=== PATIENT | female | born 1975 | race Caucasian/White ===

== ENCOUNTER 2019-12-01 11:48 | Emergency (ER) | payer SELFPAY ==
--- NOTE | 2019-12-01 12:22 | ER Document Report ---
ED Medical Screen (RME) - General Chief Complaint: Altered Mental Status Stated Complaint: ABDOMINAL PAIN Time Seen by Provider: 12/01/19 11:59 - HPI Notes: 12/01/19 12:18 43-year-old female with a history of cirrhosis and alcoholism presents to the emergency room by private vehicle with her partner for complaints of abdominal pain and pressure that has become progressively worse as well as altered mental status that has become progressively worse over the last 5 days. Patient's had recent nausea vomiting diarrhea for the last 2 weeks as well as bilateral swelling. Partner states that she has been complaining of some shortness of breath, no chest pain. Reports increased weakness. Patient has been an active alcoholic for couple of decades, she drinks daily. Patient's last paracentesis was done in January 2019 in [place]. Last bowel movement was this morning. Patient has had bowel incontinence is for the last year. Denies any melena. Patient does not have an active doctor in the area, they have been traveling across country over the summer, they do not have an established doctor. Denies any fevers chills. I have greeted and performed a rapid initial assessment of this patient. A comprehensive ED assessment and evaluation of the patient, analysis of test results and completion of the medical decision making process will be conducted by additional ED providers. PHYSICAL EXAMINATION: GENERAL: Acutely ill and in no acute distress. HEAD: Atraumatic, normocephalic. EYES: Pupils equal round extraocular movements intact, conjunctiva are normal. Bilateral jaundice. CV: Sinus tachycardia LUNGS: no respiratory distress abd: Abdominal distention, abdominal tenderness to right upper quadrant, left upper quadrant epigastric area. Musculoskeletal: Normal range of motion NEUROLOGICAL: Normal speech, normal gait. Right-handed tremor SKIN: Warm, Dry, normal turgor, no rashes or lesions noted. - Related Data Allergies/Adverse Reactions: No Known Allergies Allergy (Unverified 12/01/19 11:58) Home Medications: lasix, gabapentin, metoprolol Past Medical History - Social History Chew tobacco use (# tins/day): No Frequency of alcohol use: daily Drug Abuse: None Physical Exam - Vital signs Vitals: Temp Pulse Resp BP Pulse Ox 98.9 F 131 H 16 142/75 H 95 12/01/19 11:55 12/01/19 11:55 12/01/19 11:55 12/01/19 11:55 12/01/19 11:55 Course - Vital Signs Vital signs: Temp Pulse Resp BP Pulse Ox 98.9 F 131 H 16 142/75 H 95 12/01/19 11:55 12/01/19 11:55 12/01/19 11:55 12/01/19 11:55 12/01/19 11:55
[2019-12-01 13:00] LABS: HEMATOCRIT 36.7 % (36.0-47.0); HEMOGLOBIN 13.1 g/dL (12.0-15.5); MEAN CORPUSCULAR HEMOGLOBIN 40.6 pg (27.0-33.4); MEAN CORPUSCULAR HGB CONC 35.7 g/dL (32.0-36.0); RED BLOOD COUNT 3.22 10^6/uL (3.72-5.28); WHITE BLOOD COUNT 21.6 10^3/uL (4.0-10.5)
[2019-12-01 13:13] LABS: MEAN CORPUSCULAR VOLUME 114 fl (80-97)
[2019-12-01 13:17] LABS: ABSOLUTE LYMPHOCYTES# (MANUAL) 1.1 10^3/uL (0.5-4.7); ABSOLUTE MONOCYTES # (MANUAL) 2.4 10^3/uL (0.1-1.4); BASOPHILS % (MANUAL) 1 % (0-2); EOSINOPHILS % (MANUAL) 0 % (0-6); LYMPHOCYTES % (MANUAL) 4 % (13-45); MONOCYTES % (MANUAL) 11 % (3-13); SEGMENTED NEUTROPHILS % (MAN) 83 % (42-78); TOTAL CELLS COUNTED 100
[2019-12-01 13:18] LABS: ANISOCYTOSIS SLIGHT; POLYCHROMASIA 1+; TOXIC VACUOLATION PRESENT
[2019-12-01 13:19] LABS: PLATELET CLUMPS PRESENT; PLATELET COMMENT DECREASED; PLATELET COUNT 129 10^3/uL (150-450)
[2019-12-01 13:22] LABS: ALBUMIN 2.6 g/dL (3.5-5.0); ALKALINE PHOSPHATASE 236 U/L (38-126); ANION GAP 14 (5-19); ASPARTATE AMINO TRANSFERASE 167 U/L (14-36); BILIRUBIN,DIRECT 11.8 mg/dL (0.0-0.4); BILIRUBIN,TOTAL 16.7 mg/dL (0.2-1.3); BLOOD UREA NITROGEN 25 mg/dL (7-20); CALCIUM 7.8 mg/dL (8.4-10.2); CARBON DIOXIDE 26 mmol/L (22-30); GLUCOSE 107 mg/dL (75-110); TOTAL PROTEIN 7.8 g/dL (6.3-8.2)
[2019-12-01 13:31] LABS: PROTHROMBIN TIME 29.4 SEC (11.4-15.4)
[2019-12-01 13:32] LABS: PARTIAL THROMBOPLASTIN TIME 52.2 SEC (23.5-35.8)
[2019-12-01 13:33] LABS: ALCOHOL < 10 mg/dL (NONE DETECTED)
[2019-12-01 13:34] LABS: CHLORIDE 87 mmol/L (98-107)
--- NOTE | 2019-12-01 14:11 | ER Document Report ---
ED General - General Chief Complaint: Altered Mental Status Stated Complaint: ABDOMINAL PAIN Time Seen by Provider: 12/01/19 11:59 Cannot obtain history due to: Altered mental status - HPI Onset/Duration: Gradual Notes: Patient is a 43-year-old female with a past medical history of alcoholism who presents with altered mental status. She is here with her friend who lives with her. Patient is unable to provide a history due to her altered mental status. She is oriented to person. Her friend states that she has had about a week of declining mental status. For the past several days, she has been unsteady on her feet. She did fall today and he tried to catch her. States that she has been dropping cups and has been generally weaker. She is also not at her normal baseline mentation. He denies any fevers. No cough. Patient does drink alcohol daily and drank last night. Has a history of liver failure and cirrhosis. He noticed that she has had pain of her eyes for the past week. Patient does not have a physician here or followed up with anyone according to her friend. - Related Data Allergies/Adverse Reactions: No Known Allergies Allergy (Unverified 12/01/19 11:58) Home Medications: lasix, gabapentin, metoprolol Past Medical History - General Information source: Friend Cannot obtain history due to: Altered mental status - Social History Smoking Status: Current Some Day Smoker Chew tobacco use (# tins/day): No Frequency of alcohol use: daily Drug Abuse: None Family History: Reviewed & Not Pertinent Review of Systems - Review of Systems -: Yes ROS unobtainable due to patient's medical condition Constitutional: denies: Fever Gastrointestinal: Abdomen distended Genitourinary: Burning, Hematuria Neurological/Psychological: Confusion, Weakness Physical Exam - Vital signs Vitals: Temp Pulse Resp BP Pulse Ox 98.9 F 131 H 16 142/75 H 95 12/01/19 11:55 12/01/19 11:55 12/01/19 11:55 12/01/19 11:55 12/01/19 11:55 - Notes Notes: VITAL SIGNS: Tachycardic. GENERAL: Oriented to person, not place or time. Will respond to verbal commands. HEAD: Normal with no signs of head trauma. EYES: Scleral icterus present EARS: Hearing grossly intact. NOSE: Normal. NECK: Normal range of motion, no tenderness, supple, no lymphadenopathy, No adenopathy, no JVD. No posterior cervical tenderness. CHEST: Clear breath sounds bilaterally. No wheezes, rales, or rhonchi. CARDIAC: Regular rate and rhythm. S1 and S2, without murmurs, gallops, or rubs. VASCULAR: Bilateral pitting edema +2 to lower extremities to the knees ABDOMEN: Abdominal distension. GASTROINTESTINAL: Bowel sounds normal LYMPATHTIC: No lymphadenopathy noted. NEUROLOGICAL: Alert and oriented x 1. Will respond to verbal commands. SKIN: No rashes or lesions but does appear jaundiced. Course - Re-evaluation Re-evalutation: 12/01/19 15:58 I discussed with the hospitalist who recommended that patient be transferred for a higher level of care after assessing her in the ER as she may eventually require dialysis and needs GI consultation. She has significant lab abnormalities including elevated liver function tests, renal failure, acidosis, leukocytosis, and elevated ammonia. I am unable to do a paracentesis to rule out SBP as patient has significantly elevated PT/INR. She was started on antibiotics and given sepsis fluids. Will discuss with the transfer center. I discussed with Dr. Elyss[facility] accepted the [facility]. She was in agreement with the Rocephin and lactulose treatment. I updated the patient and her family on the plan and they were very agreeable to this. On reassessment, patient is alert to person and place now. She is responding to questions faster and appears improved. Currently awaiting transfer. 12/01/19 16:53 12/01/19 17:43 12/01/19 17:46 12/01/19 17:48 - Vital Signs Vital signs: Temp Pulse Resp BP Pulse Ox 98.0 F 125 H 21 H 124/100 H 97 12/01/19 15:30 12/01/19 12:11 12/01/19 17:30 12/01/19 17:30 12/01/19 17:30 - Laboratory Result Diagrams: 12/01/19 12:45 12/01/19 12:45 Laboratory results interpreted by me: 12/01/19 12/01/19 12/01/19 12:45 12:45 12:45 WBC 21.6 H RBC 3.22 L MCV 114 H MCH 40.6 H RDW 15.0 H Plt Count 129 L Seg Neuts % (Manual) 83 H Lymphocytes % (Manual) 4 L Abs Neuts (Manual) 17.9 H Abs Monocytes (Manual) 2.4 H PT 29.4 H APTT 52.2 H Sodium 127.3 L Potassium 3.0 L* Chloride 87 L BUN 25 H Creatinine 2.08 H Est GFR ( Amer) 31 L Est GFR (MDRD) Non-Af 26 L Lactic Acid Calcium 7.8 L Total Bilirubin 16.7 H Direct Bilirubin 11.8 H AST 167 H ALT 46 H Alkaline Phosphatase 236 H Ammonia NT-Pro-B Natriuret Pep Albumin 2.6 L Urine Protein Urine Glucose (UA) Urine Blood Urine Nitrite Urine Bilirubin Urine Urobilinogen 12/01/19 12/01/19 12/01/19 12:45 14:20 14:20 WBC RBC MCV MCH RDW Plt Count Seg Neuts % (Manual) Lymphocytes % (Manual) Abs Neuts (Manual) Abs Monocytes (Manual) PT APTT Sodium Potassium Chloride BUN Creatinine Est GFR ( Amer) Est GFR (MDRD) Non-Af Lactic Acid 6.7 H Calcium Total Bilirubin Direct Bilirubin AST ALT Alkaline Phosphatase Ammonia 82.7 H NT-Pro-B Natriuret Pep 345 H Albumin Urine Protein Urine Glucose (UA) Urine Blood Urine Nitrite Urine Bilirubin Urine Urobilinogen 12/01/19 14:20 WBC RBC MCV MCH RDW Plt Count Seg Neuts % (Manual) Lymphocytes % (Manual) Abs Neuts (Manual) Abs Monocytes (Manual) PT APTT Sodium Potassium Chloride BUN Creatinine Est GFR ( Amer) Est GFR (MDRD) Non-Af Lactic Acid Calcium Total Bilirubin Direct Bilirubin AST ALT Alkaline Phosphatase Ammonia NT-Pro-B Natriuret Pep Albumin Urine Protein 30 H Urine Glucose (UA) 50 H Urine Blood MODERATE H Urine Nitrite POSITIVE H Urine Bilirubin MODERATE H Urine Urobilinogen 4.0 H - Diagnostic Test Radiology reviewed: Image reviewed, Reports reviewed - EKG Interpretation by Me EKG shows normal: Sinus rhythm Rate: Tachycardia When compared to previous EKG there are: Previous EKG unavailable Additional EKG results interpreted by me: 12/01/19 15:03 Sinus tachycardia at a rate of 122. QTc 490. Artifact present but no obvious acute ST changes. No previous EKG available for comparison. Critical Care Note - Critical Care Note Total time excluding time spent on procedures (mins): 30 Discharge - Discharge Clinical Impression: Elevated liver function tests, Jaundice, Hepatic encephalopathy Acute kidney failure Qualifiers: Acute renal failure type: unspecified Qualified Code(s): N17.9 - Acute kidney failure, unspecified Cirrhosis of liver Qualifiers: Hepatic cirrhosis type: unspecified hepatic cirrhosis Ascites presence: unspecified Qualified Code(s): K74.60 - Unspecified cirrhosis of liver Sepsis Qualifiers: Sepsis type: sepsis due to unspecified organism Sepsis acute organ dysfunction status: unspecified Qualified Code(s): A41.9 - Sepsis, unspecified organism Condition: Serious Disposition: [facility]
--- NOTE | 2019-12-01 14:14 | RADIOLOGY REPORT (SQ) ---
EXAM DESCRIPTION: CT HEAD WITHOUT IMAGES COMPLETED DATE/TIME: 12/01/2019 2:01 pm REASON FOR STUDY: abd pain/pressure,distention x5d, +cirrhosis COMPARISON: None. TECHNIQUE: Axial images acquired through the brain without intravenous contrast. Images reviewed wi th bone, brain and subdural windows. Additional sagittal and coronal reconstructions were generated. Images stored on PACS. All CT scanners at this facility use dose modulation, iterative reconstruction, and/or weight based d osing when appropriate to reduce radiation dose to as low as reasonably achievable (ALARA). [facility]: Dose Right [facility]: CareDose [facility]: Dose Right [facility]: Teradose 4D [facility]: Ph.Creative RADIATION DOSE: CT Rad equipment meets quality standard of care and radiation dose reduction techniq ues were employed. CTDIvol: 53.2 mGy. DLP: 1928 mGy-cm. mGy. LIMITATIONS: Motion artifact. FINDINGS: VENTRICLES: Normal size and contour. CEREBRUM: No masses. No hemorrhage. No midline shift. No evidence for acute infarction. Normal gra y/white matter differentiation. No areas of low density in the white matter. CEREBELLUM: No masses. No hemorrhage. No alteration of density. No evidence for acute infarction. EXTRAAXIAL SPACES: No fluid collections. No masses. ORBITS AND GLOBE: No intra- or extraconal masses. Normal contour of globe without masses. CALVARIUM: No fracture. PARANASAL SINUSES: No fluid or mucosal thickening. SOFT TISSUES: No mass or hematoma. OTHER: No other significant finding. IMPRESSION: NORMAL BRAIN CT WITHOUT CONTRAST. EVIDENCE OF ACUTE STROKE: NO. COMMENT: Quality ID # [id number]: Final reports with documentation of one or more dose reduction techniques (e.g., Automated exposure control, adjustment of the mA and/or kV according to patient size, use of iterative reconstruction technique) TECHNICAL DOCUMENTATION: JOB ID: [id number] 2010 [employer]- All Rights Reserved Reading location - IP/workstation name: [email or web address]
[2019-12-01] MEDS ORDERED: NORMAL SALINE 1000 ML 1,000 ML IV ONE ×2 (14:19→14:30)
--- NOTE | 2019-12-01 14:19 | RADIOLOGY REPORT (SQ) ---
EXAM DESCRIPTION: CT ABD/PELVIS NO ORAL OR IV IMAGES COMPLETED DATE/TIME: 12/01/2019 2:01 pm REASON FOR STUDY: abdominal pain, distension, cirrhosis COMPARISON: None. TECHNIQUE: CT scan of the abdomen and pelvis performed without intravenous or oral contrast. Images reviewed with lung, soft tissue, and bone windows. Reconstructed coronal and sagittal MPR images revi ewed. All images stored on PACS. All CT scanners at this facility use dose modulation, iterative reconstruction, and/or weight based d osing when appropriate to reduce radiation dose to as low as reasonably achievable (ALARA). [facility]: Dose Right [facility]: CareDose [facility]: Dose Right [facility]: Teradose 4D [facility]: YellowSchedule RADIATION DOSE: CT Rad equipment meets quality standard of care and radiation dose reduction techniq ues were employed. CTDIvol: 14.4 mGy. DLP: 859 mGy-cm.mGy. LIMITATIONS: Motion artifact. FINDINGS: LOWER CHEST: Breast implants. NON-CONTRASTED LIVER, SPLEEN, ADRENALS: Cirrhosis. PANCREAS: No masses. No peripancreatic inflammatory changes. GALLBLADDER: No identified stones by CT criteria. No inflammatory changes to suggest cholecystitis. RIGHT KIDNEY AND URETER: No suspicious masses. Assessment limited by lack of IV contrast. No signif icant calcifications. No hydronephrosis or hydroureter. LEFT KIDNEY AND URETER: No suspicious masses. Assessment limited by lack of IV contrast. 8 mm midpo le calculus adjacent to cortical scarring. No hydronephrosis or hydroureter. AORTA AND RETROPERITONEUM: No aneurysm. Recannulized umbilical vein. BOWEL AND PERITONEAL CAVITY: No dilated loops. Moderate ascites. APPENDIX: Not visualized. PELVIS, BLADDER, AND ABDOMINAL WALL:No abnormal masses. Free fluid. Bladder normal. BONES: No significant findings. OTHER: No other significant finding. IMPRESSION: 1. Cirrhosis. Portal hypertension. Moderate ascites. 2. Nonobstructing left renal calculus. COMMENT: Quality ID # [id number]: Final reports with documentation of one or more dose reduction techniques (e.g., Automated exposure control, adjustment of the mA and/or kV according to patient size, use of iterative reconstruction technique) TECHNICAL DOCUMENTATION: JOB ID: [id number] 2010 [employer]- All Rights Reserved Reading location - IP/workstation name: [email or web address]
--- NOTE | 2019-12-01 14:51 | RADIOLOGY REPORT (SQ) ---
EXAM DESCRIPTION: CHEST SINGLE VIEW IMAGES COMPLETED DATE/TIME: 12/01/2019 2:22 pm REASON FOR STUDY: abd pain/pressure,distention x5d, +cirrhosis COMPARISON: None. EXAM PARAMETERS: NUMBER OF VIEWS: One view. TECHNIQUE: Single frontal radiographic view of the chest acquired. RADIATION DOSE: NA LIMITATIONS: Overlying jewelry. FINDINGS: LUNGS AND PLEURA: 2.5 cm nodular density overlying left upper lobe. This may be overlying artifact. No infiltrate. MEDIASTINUM AND HILAR STRUCTURES: No masses. Contour normal. HEART AND VASCULAR STRUCTURES: Heart normal in size. Normal vasculature. BONES: No acute findings. HARDWARE: None in the chest. OTHER: No other significant finding. IMPRESSION: Possible lung nodule left upper lobe. TECHNICAL DOCUMENTATION: JOB ID: [id number] 2010 [employer]- All Rights Reserved Reading location - IP/workstation name: [email or web address]
[2019-12-01] MEDS ORDERED: CEFTRIAXONE 1 GM/D5W RTU 1 GM/50 ML RTUPB IV ONE (14:58)
[2019-12-01 15:00] LABS: AMORPHOUS SEDIMENT,URINE TRACE /HPF; APPEARANCE,URINE CLOUDY; BILIRUBIN,URINE MODERATE (NEGATIVE); COLOR,URINE AMBER; GLUCOSE, URINE 50 mg/dL (NEGATIVE); KETONES,URINE NEGATIVE (NEGATIVE); LEUKOCYTE ESTERASE,URINE NEGATIVE (NEGATIVE); NITRITE,URINE POSITIVE (NEGATIVE); PROTEIN,URINE 30 mg/dL (NEGATIVE); URINE SPECIFIC GRAVITY 1.019
[2019-12-01] MEDS ORDERED: NORMAL SALINE 1000 ML 1,000 ML with POTASSIUM CHLORIDE 10 MEQ IV PRN ×2 (15:39)
[2019-12-01] MEDS ORDERED: LACTULOSE SYRUP 20 GM/30 ML UDCUP PR ONE (15:52)
[2019-12-01] MEDS ORDERED: POTASSI CL 20 MEQ/50 ML RIDER 20 MEQ/50 ML RTUPB IV ONE (17:37)
[2019-12-01] MEDS ORDERED: NORMAL SALINE 500 ML IV ONE (17:52)
[2019-12-01 18:19] VITALS: BP 121/73
--- NOTE | 2019-12-02 09:40 | EKG REPORT ---
SEVERITY:- ABNORMAL ECG - SINUS TACHYCARDIA PROBABLE LEFT ATRIAL ABNORMALITY NONSPECIFIC T ABNORMALITIES, INFERIOR LEADS BORDERLINE PROLONGED QT INTERVAL : Confirmed by: Raheem Serna MD 02-Dec-2019 09:38:42
[2019-12-02 11:21] LABS: PATH REVIEW PATHOLOGIST REVIEWED
== END 2019-12-01 18:30 | disposition short-term general hospital (02) ==
LOC: ER 11:48
DX: G93.40 Encephalopathy, unspecified (principal); N17.9 Acute kidney failure, unspecified; K74.60 Unspecified cirrhosis of liver; A41.9 Sepsis, unspecified organism; R94.5 Abnormal results of liver function studies; R41.82 Altered mental status, unspecified; R10.9 Unspecified abdominal pain; F17.200 Nicotine dependence, unspecified, uncomplicated
CPT/HCPCS: 93005; 99285; 96361; 96365; 36415; 87040; 80307; 82140; 83605; 83690; 83735; 85025; 85610; 85730; 80053; 81001; 84484; 83880; 71045; 70450; 74176; 93010; J3480; J7030; J0696